=== PATIENT | male | born 1970 | race Caucasian/White ===

== ENCOUNTER 2024-09-02 02:27 | Emergency (ER) | payer SELFPAY ==
[~2024-09-02] VITALS: Ht 172.7 cm; Wt 76.2 kg
[2024-09-02 02:33] VITALS: BP 132/96; PULSE 87; RESP 18; TEMP 98; O2SAT 96
[2024-09-02 02:51] VITALS: BP 132/96; PULSE 87; RESP 18; TEMP 98; O2SAT 96
== END 2024-09-02 02:51 ==
LOC: MED 02:27
DX: R07.81 Pleurodynia (principal); V89.2XXA Person injured in unspecified motor-vehicle accident, traffic, initial encounter; Y93.89 Activity, other specified; Y92.89 Other specified places as the place of occurrence of the external cause; Y99.8 Other external cause status
CPT/HCPCS: 99283